=== PATIENT | male | born 1985 | race Caucasian/White ===

== ENCOUNTER 2021-06-20 23:28 | Inpatient (IN) | payer OTHER ==
[2021-06-21 00:04] VITALS: BMI 28.8
[2021-06-21] MEDS ORDERED: chlordiazePOXIDE HCL 25 MG CAPSULE PO PRN (01:13)
[2021-06-21] MEDS ORDERED: DICYCLOMINE HCL 10 MG CAPSULE PO PRN (01:13)
[2021-06-21] MEDS ORDERED: MENTHOL/PHENOL 1 EACH UD MM PRN (01:13)
[2021-06-21] MEDS ORDERED: methaDONE HCL 10 MG TABLET (FOR DETOX USE ONLY) PO ONE ×2 (01:13→10:00)
[2021-06-21] MEDS ORDERED: cloNIDine HCL 0.1 MG TABLET PO PRN (01:13)
[2021-06-21] MEDS ORDERED: MAG HYDROX/AL HYDROX/SIMETH 30 ML UNIT-DOSE CUP PO PRN (01:13)
[2021-06-21] MEDS ORDERED: NALOXONE (NARCAN) HCL 4 MG/0.1 ML SPRAY NS PRN (01:13)
[2021-06-21] MEDS ORDERED: MAGNESIUM HYDROX 2400MG/30ML ORAL SUSPENSION 30 ML CUP PO PRN (01:13)
[2021-06-21] MEDS ORDERED: MAGNESIUM CITRATE 300 ML BOTTLE PO PRN (01:13)
[2021-06-21] MEDS ORDERED: guaiFENesin 200 MG/10 ML 10 ML UNIT-DOSE CUPS PO PRN (01:13)
[2021-06-21] MEDS ORDERED: ACETAMINOPHEN 325 MG TABLET (FP) PO PRN ×2 (01:13)
[2021-06-21] MEDS ORDERED: NALOXONE HCL 0.4 MG/ML VIAL IM PRN (01:13)
[2021-06-21] MEDS ORDERED: PROCHLORPERAZINE MALEATE 5 MG TABLET PO PRN (01:13)
[2021-06-21] MEDS ORDERED: BISMUTH SUBSALICYLATE 524 MG/30 ML PO PRN (01:13)
[2021-06-21] MEDS ORDERED: P-EPHED 60MG/TRIPROLIDI 2.5MG TABLET PO PRN (01:13)
[2021-06-21] MEDS ORDERED: methaDONE HCL 10 MG TABLET (FOR DETOX USE ONLY) ONE (04:13)
[2021-06-21] MEDS ORDERED: IBUPROFEN 400 MG TABLET (FP) PO ONE (04:14)
[2021-06-21] MEDS ORDERED: METHOCARBAMOL 500 MG TABLET ONE (04:14)
[2021-06-21] MEDS: IBUPROFEN 400 MG TABLET (FP) PO PRN (04:18)
[2021-06-21] MEDS: METHOCARBAMOL 500 MG TABLET PO PRN ×3 (04:20→22:28)
[2021-06-21] MEDS ORDERED: chlordiazePOXIDE HCL 25 MG CAPSULE PO SCH (05:00)
[2021-06-21] MEDS: PRENATAL VITAMINS W/ FOLIC ACID TABLET (FP) PO SCH (10:17)
[2021-06-21] MEDS: NICOTINE 14 MG/24 HOURS TOPICAL PATCH TD SCH (10:18)
[2021-06-21] MEDS: diazePAM 5 MG TABLET PO SCH ×3 (10:23→22:28)
[2021-06-21] MEDS ORDERED: GABAPENTIN 400 MG CAPSULE PO SCH (14:00)
[2021-06-21] MEDS ORDERED: GABAPENTIN 300 MG CAPSULE PO ONE (14:14)
[2021-06-21] MEDS: diazePAM 5 MG TABLET PO PRN (14:29)
[2021-06-21 14:49] LABS: HEMATOCRIT 39.5 % (35.4-49); HEMOGLOBIN 13.4 GM/dL (11.7-16.9); MCH 31.4 pg (25.7-33.7); MCHC 33.8 g/dl (32.0-35.9); MEAN CELL VOLUME 92.6 fl (80-96); MEAN PLT VOLUME 8.5 fl (7.5-11.1); PLATELET COUNT 147 10^3/uL (134-434); RBC 4.26 M/mm3 (4.00-5.60); RDW 13.4 % (11.9-15.9); WHITE BLOOD COUNT 5.3 K/mm3 (4.0-10.0)
[2021-06-21 14:57] LABS: ALBUMIN 3.3 g/dl (3.4-5.0); BLOOD UREA NITROGEN 16.4 mg/dL (7-18); CALCIUM 9.2 mg/dL (8.5-10.1)
[2021-06-21 15:00] LABS: CREATININE 1.2 mg/dL (0.55-1.3)
[2021-06-21 15:02] LABS: BILIRUBIN,TOTAL 0.2 mg/dL (0.2-1); TOT PROT 6.5 g/dl (6.4-8.2)
[2021-06-21] MEDS: NICOTINE POLACRILEX 2 MG GUM BUC PRN (17:45)
[2021-06-21] MEDS ORDERED: LITHIUM CARBONATE 300 MG CAPSULE PO SCH (22:00)
[2021-06-21] MEDS ORDERED: OLANZapine 10 MG TABLET PO SCH (22:00)
[2021-06-21] MEDS ORDERED: MELATONIN 5 MG TABLETS PO SCH (22:00)
[2021-06-21] MEDS: THIAMINE HCL 100 MG TABLET (FP) PO SCH (22:28)
[2021-06-21] MEDS: GABAPENTIN 300 MG CAPSULE PO SCH (22:28)
[2021-06-22] MEDS ORDERED: chlordiazePOXIDE HCL 25 MG CAPSULE PO SCH (05:00)
[2021-06-22] MEDS: diazePAM 5 MG TABLET PO SCH ×4 (05:24→22:02)
[2021-06-22] MEDS ORDERED: methaDONE HCL 10 MG TABLET (FOR DETOX USE ONLY) ONE (09:26)
[2021-06-22] MEDS: PRENATAL VITAMINS W/ FOLIC ACID TABLET (FP) PO SCH (10:34)
[2021-06-22] MEDS: GABAPENTIN 300 MG CAPSULE PO SCH (10:34)
[2021-06-22] MEDS: NICOTINE 14 MG/24 HOURS TOPICAL PATCH TD SCH (10:34)
[2021-06-22] MEDS: NICOTINE POLACRILEX 2 MG GUM BUC PRN ×2 (10:35→13:11)
[2021-06-22] MEDS: METHOCARBAMOL 500 MG TABLET PO PRN ×2 (10:36→22:05)
[2021-06-22] MEDS: diazePAM 5 MG TABLET PO PRN (13:07)
[2021-06-22] MEDS: GABAPENTIN 400 MG CAPSULE PO SCH ×2 (15:10→22:02)
[2021-06-22] MEDS: THIAMINE HCL 100 MG TABLET (FP) PO SCH (22:02)
[2021-06-22] MEDS: IBUPROFEN 400 MG TABLET (FP) PO PRN (22:05)
[2021-06-22] MEDS ORDERED: MELATONIN 5 MG TABLETS PO ONE (23:12)
[2021-06-23] MEDS ORDERED: chlordiazePOXIDE HCL 10 MG CAPSULE PO PRN
[2021-06-23] MEDS: diazePAM 5 MG TABLET PO PRN ×3 (01:49→13:03)
[2021-06-23] MEDS ORDERED: chlordiazePOXIDE HCL 10 MG CAPSULE PO SCH (05:00)
[2021-06-23] MEDS: GABAPENTIN 400 MG CAPSULE PO SCH (06:16)
[2021-06-23] MEDS: diazePAM 5 MG TABLET PO SCH ×2 (06:17→13:15)
[2021-06-23] MEDS ORDERED: methaDONE HCL 10 MG TABLET (FOR DETOX USE ONLY) PO ONE (10:00)
[2021-06-23] MEDS: NICOTINE 14 MG/24 HOURS TOPICAL PATCH TD SCH (10:37)
[2021-06-23] MEDS: PRENATAL VITAMINS W/ FOLIC ACID TABLET (FP) PO SCH (10:37)
[2021-06-23 13:17] VITALS: BP 120/84; PULSE 89; TEMP 97.1
[2021-06-24] MEDS ORDERED: chlordiazePOXIDE HCL 10 MG CAPSULE PO SCH (05:00)
[2021-06-24] MEDS ORDERED: diazePAM 5 MG TABLET PO SCH (06:00)
[2021-06-25] MEDS ORDERED: chlordiazePOXIDE HCL 10 MG CAPSULE PO ONE (05:00)
[2021-06-25] MEDS ORDERED: diazePAM 5 MG TABLET PO ONE (06:00)
[2021-06-25] MEDS ORDERED: methaDONE HCL 10 MG TABLET (FOR DETOX USE ONLY) PO ONE (10:00)
== END 2021-06-23 14:22 | disposition left against medical advice (07) | DRG 770 ==
LOC: YASAS 23:28 → Y6N 06-21 04:29
PROVIDERS: ADMIT Allergy & Immunology; ATTEND Allergy & Immunology
PROC: HZ2ZZZZ Detoxification Services for Substance Abuse Treatment (ICD-10-PCS; principal; 2021-06-21)
DX: F11.23 Opioid dependence with withdrawal (principal); F10.230 Alcohol dependence with withdrawal, uncomplicated; F14.20 Cocaine dependence, uncomplicated; F17.210 Nicotine dependence, cigarettes, uncomplicated; F19.282 Other psychoactive substance dependence with psychoactive substance-induced sleep disorder; F19.24 Other psychoactive substance dependence with psychoactive substance-induced mood disorder; F31.9 Bipolar disorder, unspecified; F90.9 Attention-deficit hyperactivity disorder, unspecified type; G62.9 Polyneuropathy, unspecified; I10 Essential (primary) hypertension; M54.50 Low back pain, unspecified; G89.29 Other chronic pain; R73.9 Hyperglycemia, unspecified; Z88.0 Allergy status to penicillin; Z88.8 Allergy status to other drugs, medicaments and biological substances; Z59.00 Homelessness unspecified; Z56.0 Unemployment, unspecified
CPT/HCPCS: 36415; 80053; 80178; 82962; 85027; 86780; 93005; 93010; C9803; J0735; U0003; U0005

== ENCOUNTER 2021-07-27 01:31 | Inpatient (IN) | payer OTHER ==
[2021-07-27] MEDS ORDERED: MAGNESIUM HYDROX 2400MG/30ML ORAL SUSPENSION 30 ML CUP PO PRN (04:01)
[2021-07-27] MEDS ORDERED: MAG HYDROX/AL HYDROX/SIMETH 30 ML UNIT-DOSE CUP PO PRN (04:01)
[2021-07-27] MEDS ORDERED: MAGNESIUM CITRATE 300 ML BOTTLE PO PRN (04:01)
[2021-07-27] MEDS ORDERED: LOPERAMIDE HCL 2 MG CAPSULE PO PRN (04:01)
[2021-07-27] MEDS ORDERED: ONDANSETRON *ODT* 4 MG TABLET SL PRN (04:01)
[2021-07-27] MEDS ORDERED: MENTHOL/PHENOL 1 EACH UD MM PRN (04:01)
[2021-07-27] MEDS ORDERED: methaDONE HCL 10 MG TABLET (FOR DETOX USE ONLY) PO ONE (04:01)
[2021-07-27] MEDS ORDERED: NICOTINE POLACRILEX 2 MG GUM BUC PRN (04:01)
[2021-07-27] MEDS ORDERED: BISMUTH SUBSALICYLATE 524 MG/30 ML PO PRN (04:01)
[2021-07-27] MEDS ORDERED: ACETAMINOPHEN 325 MG TABLET (FP) PO PRN (04:01)
[2021-07-27] MEDS ORDERED: methaDONE HCL 10 MG TABLET (FOR DETOX USE ONLY) ONE (04:39)
[2021-07-27] MEDS ORDERED: diazePAM 5 MG TABLET ONE (04:41)
[2021-07-27] MEDS: diazePAM 5 MG TABLET PO PRN ×2 (04:49→14:04)
[2021-07-27] MEDS: diazePAM 5 MG TABLET PO SCH ×4 (07:04→22:50)
[2021-07-27] MEDS: PRENATAL VITAMINS W/ FOLIC ACID TABLET (FP) PO SCH (11:15)
[2021-07-27] MEDS: METHOCARBAMOL 500 MG TABLET PO PRN (11:15)
[2021-07-27] MEDS: NICOTINE 21 MG/24 HOURS TOPICAL PATCH TD SCH (11:17)
[2021-07-27] MEDS: cloNIDine HCL 0.1 MG TABLET PO PRN (14:04)
[2021-07-27] MEDS: MELATONIN 5 MG TABLETS PO SCH (22:48)
[2021-07-27] MEDS: THIAMINE HCL 100 MG TABLET (FP) PO SCH (22:49)
[2021-07-28] MEDS: diazePAM 5 MG TABLET PO PRN ×3 (01:06→14:33)
[2021-07-28] MEDS: IBUPROFEN 400 MG TABLET (FP) PO PRN ×2 (01:06→23:01)
[2021-07-28] MEDS: ACETAMINOPHEN 325 MG TABLET (FP) PO PRN (04:40)
[2021-07-28] MEDS: METHOCARBAMOL 500 MG TABLET PO PRN ×2 (04:41→09:54)
[2021-07-28] MEDS: diazePAM 5 MG TABLET PO SCH ×3 (05:11→22:58)
[2021-07-28] MEDS ORDERED: methaDONE HCL 10 MG TABLET (FOR DETOX USE ONLY) ONE (08:47)
[2021-07-28] MEDS: PRENATAL VITAMINS W/ FOLIC ACID TABLET (FP) PO SCH (08:59)
[2021-07-28] MEDS: NICOTINE 21 MG/24 HOURS TOPICAL PATCH TD SCH (09:05)
[2021-07-28 10:40] LABS: BLOOD UREA NITROGEN 10.8 mg/dL (7-18); CALCIUM 10.3 mg/dL (8.5-10.1)
[2021-07-28 10:42] LABS: HEMATOCRIT 48.2 % (35.4-49); MCH 30.9 pg (25.7-33.7); MCHC 33.3 g/dl (32.0-35.9); MEAN CELL VOLUME 92.8 fl (80-96); MEAN PLT VOLUME 8.7 fl (7.5-11.1); PLATELET COUNT 220 10^3/uL (134-434); RDW 13.1 % (11.9-15.9); WHITE BLOOD COUNT 5.8 K/mm3 (4.0-10.0)
[2021-07-28 10:43] LABS: CREATININE 0.8 mg/dL (0.55-1.3)
[2021-07-28 10:45] LABS: BILIRUBIN,TOTAL 0.7 mg/dL (0.2-1); TOT PROT 8.2 g/dl (6.4-8.2)
[2021-07-28] MEDS: amLODIPine BESYLATE 10 MG TABLET (FP) PO SCH (15:21)
[2021-07-28] MEDS: LISINOPRIL 5 MG TABLET PO SCH (17:44)
[2021-07-28] MEDS ORDERED: CLINDAMYCIN HCL 300 MG CAPSULE PO SCH (22:00)
[2021-07-28] MEDS: THIAMINE HCL 100 MG TABLET (FP) PO SCH (22:58)
[2021-07-28] MEDS: CLINDAMYCIN HCL 300 MG CAPSULE PO SCH (22:59)
[2021-07-28] MEDS: MELATONIN 5 MG TABLETS PO SCH (23:12)
[2021-07-28] MEDS: CHLORHEXIDINE GLUCONATE 0.12% 15ML CUP MM SCH (23:12)
[2021-07-29 00:08] LABS: SARS-CoV-2 NAA Not Detected (Not Detected)
[2021-07-29] MEDS: diazePAM 5 MG TABLET PO PRN ×3 (02:57→12:49)
[2021-07-29] MEDS: CLINDAMYCIN HCL 300 MG CAPSULE PO SCH ×2 (05:55→14:23)
[2021-07-29] MEDS ORDERED: diazePAM 5 MG TABLET PO SCH (06:00)
[2021-07-29] MEDS ORDERED: methaDONE HCL 10 MG TABLET (FOR DETOX USE ONLY) PO ONE (10:00)
[2021-07-29] MEDS: LISINOPRIL 5 MG TABLET PO SCH (10:09)
[2021-07-29] MEDS: METHOCARBAMOL 500 MG TABLET PO PRN ×2 (10:09→22:19)
[2021-07-29] MEDS: amLODIPine BESYLATE 10 MG TABLET (FP) PO SCH (10:09)
[2021-07-29] MEDS: PRENATAL VITAMINS W/ FOLIC ACID TABLET (FP) PO SCH (10:14)
[2021-07-29] MEDS: NICOTINE 21 MG/24 HOURS TOPICAL PATCH TD SCH (11:47)
[2021-07-29] MEDS: CHLORHEXIDINE GLUCONATE 0.12% 15ML CUP MM SCH ×2 (12:50→22:23)
[2021-07-29] MEDS: CLINDAMYCIN HCL 150 MG CAPSULE (FP) PO SCH ×2 (14:24→22:19)
[2021-07-29] MEDS ORDERED: LORazepam 0.5 MG TABLET PO PRN (14:34)
[2021-07-29] MEDS: IBUPROFEN 400 MG TABLET (FP) PO PRN ×2 (16:55→22:22)
[2021-07-29] MEDS ORDERED: LORazepam 0.5 MG TABLET PO SCH (17:00)
[2021-07-29] MEDS: cloNIDine HCL 0.1 MG TABLET PO PRN (22:20)
[2021-07-29] MEDS: MELATONIN 5 MG TABLETS PO SCH (22:20)
[2021-07-29] MEDS: THIAMINE HCL 100 MG TABLET (FP) PO SCH (22:20)
[2021-07-30 00:08] LABS: SARS-CoV-2 NAA Not Detected (Not Detected)
[2021-07-30] MEDS ORDERED: LORazepam 0.5 MG TABLET PO ONE (05:00)
[2021-07-30] MEDS: CLINDAMYCIN HCL 150 MG CAPSULE (FP) PO SCH ×3 (05:48→22:10)
[2021-07-30] MEDS ORDERED: diazePAM 5 MG TABLET PO ONE ×2 (06:00→15:59)
[2021-07-30] MEDS ORDERED: methaDONE HCL 10 MG TABLET (FOR DETOX USE ONLY) ONE (09:46)
[2021-07-30] MEDS: PRENATAL VITAMINS W/ FOLIC ACID TABLET (FP) PO SCH (10:35)
[2021-07-30] MEDS: amLODIPine BESYLATE 10 MG TABLET (FP) PO SCH (10:35)
[2021-07-30] MEDS: METHOCARBAMOL 500 MG TABLET PO PRN ×2 (10:35→22:11)
[2021-07-30] MEDS: NICOTINE 21 MG/24 HOURS TOPICAL PATCH TD SCH (10:35)
[2021-07-30] MEDS: LISINOPRIL 5 MG TABLET PO SCH (10:36)
[2021-07-30] MEDS: CHLORHEXIDINE GLUCONATE 0.12% 15ML CUP MM SCH ×2 (14:31→22:11)
[2021-07-30] MEDS: MELATONIN 5 MG TABLETS PO SCH (22:11)
[2021-07-30] MEDS: THIAMINE HCL 100 MG TABLET (FP) PO SCH (22:11)
[2021-07-31] MEDS: CLINDAMYCIN HCL 150 MG CAPSULE (FP) PO SCH ×3 (06:18→22:03)
[2021-07-31] MEDS: METHOCARBAMOL 500 MG TABLET PO PRN ×3 (06:18→22:05)
[2021-07-31] MEDS ORDERED: methaDONE HCL 10 MG TABLET (FOR DETOX USE ONLY) PO ONE (10:00)
[2021-07-31] MEDS: LISINOPRIL 5 MG TABLET PO SCH (10:31)
[2021-07-31] MEDS: amLODIPine BESYLATE 10 MG TABLET (FP) PO SCH (10:31)
[2021-07-31] MEDS: PRENATAL VITAMINS W/ FOLIC ACID TABLET (FP) PO SCH (10:31)
[2021-07-31] MEDS: CHLORHEXIDINE GLUCONATE 0.12% 15ML CUP MM SCH (10:31)
[2021-07-31] MEDS: diazePAM 5 MG TABLET PO PRN ×2 (12:09→22:03)
[2021-07-31 18:01] VITALS: TEMP 97.5
[2021-07-31] MEDS: THIAMINE HCL 100 MG TABLET (FP) PO SCH (22:03)
[2021-07-31] MEDS: CHLORHEXIDINE GLUCONATE 118 ML MOUTHWASH MM SCH (22:04)
[2021-07-31] MEDS: NICOTINE 21 MG/24 HOURS TOPICAL PATCH TD SCH (22:04)
[2021-07-31] MEDS: MELATONIN 5 MG TABLETS PO SCH (22:04)
[2021-07-31] MEDS: ACETAMINOPHEN 325 MG TABLET (FP) PO PRN (22:06)
[2021-07-31 22:27] VITALS: PULSE 71
[2021-08-01] MEDS: METHOCARBAMOL 500 MG TABLET PO PRN (05:52)
[2021-08-01] MEDS: CLINDAMYCIN HCL 150 MG CAPSULE (FP) PO SCH (05:53)
[2021-08-01 07:50] VITALS: BP 140/85
[2021-08-01] MEDS: NICOTINE 21 MG/24 HOURS TOPICAL PATCH TD SCH (09:00)
[2021-08-01] MEDS: LISINOPRIL 5 MG TABLET PO SCH (09:01)
[2021-08-01] MEDS: amLODIPine BESYLATE 10 MG TABLET (FP) PO SCH (09:01)
[2021-08-01] MEDS: PRENATAL VITAMINS W/ FOLIC ACID TABLET (FP) PO SCH (09:01)
[2021-08-01] MEDS: CHLORHEXIDINE GLUCONATE 118 ML MOUTHWASH MM SCH (09:01)
== END 2021-08-01 09:03 | disposition home or self-care (01) | DRG 773 ==
LOC: YASAS 01:31 → Y6N 03:39
PROVIDERS: ADMIT Allergy & Immunology; ATTEND Allergy & Immunology
PROC: HZ2ZZZZ Detoxification Services for Substance Abuse Treatment (ICD-10-PCS; principal; 2021-07-27)
DX: F11.23 Opioid dependence with withdrawal (principal); F10.230 Alcohol dependence with withdrawal, uncomplicated; F14.20 Cocaine dependence, uncomplicated; F17.210 Nicotine dependence, cigarettes, uncomplicated; F31.9 Bipolar disorder, unspecified; F41.9 Anxiety disorder, unspecified; G62.9 Polyneuropathy, unspecified; I10 Essential (primary) hypertension; K04.7 Periapical abscess without sinus; B18.2 Chronic viral hepatitis C; M54.50 Low back pain, unspecified; G89.29 Other chronic pain; Z88.0 Allergy status to penicillin; Z88.8 Allergy status to other drugs, medicaments and biological substances
CPT/HCPCS: 36415; 80053; 82962; 85027; 86780; 93005; 93010; C9803; J0735; U0003; U0005